=== PATIENT | male | born 1960 | race Caucasian/White ===

== ENCOUNTER 2024-10-20 07:53 | Outpatient (CLI) | payer BC, OTHER, SELFPAY ==
--- NOTE | 2024-10-20 08:15 | CRLHL7_ITS ---
For Patients: As a result of the Century Cures Act, medical imaging exams and procedure reports are released immediately into your electronic medical record. You may view this report before your referring provider. If you have questions, please contact your health care provider. ULTRASOUND-GUIDED RIGHT CERVICAL LYMPH NODE BIOPSY CLINICAL HISTORY: Enlarged right cervical lymph node COMPARISON STUDIES: CT soft tissue neck 10/12/2024 TECHNIQUE: Real-time ultrasound with image documentation was used for targeting the right cervical lymph node lesion. Core biopsy specimens were obtained using an automated gun with an 18-gauge biopsy needle. CONSENT and TIME OUT: The procedure, risks, and alternatives were explained to the patient and a consent was signed. [place] Protocol was followed including pre-procedure verification that relevant information/documentation was available, reviewed and properly matched to the patient; consent accurate and complete; and equipment and supplies available. Time Out was conducted just prior to starting procedure to verify the four required elements: patient identity, correct side/site marked (if applicable), procedure, relevant images/results properly labeled and displayed (if applicable). PROCEDURE: The patient was positioned supine on the ultrasound table. The right side of the neck was prepped with ChloraPrep. 8 cc of 1 percent lidocaine used for local anesthesia. Core samples were obtained. The specimens were placed in 10% formalin and sent to the pathology department. Pressure was held on the biopsy site until all bleeding subsided. The skin incision was closed with Steri-Strips. An ice pack was positioned over the biopsy site. Post-biopsy instructions were reviewed with the patient. LATERALITY: Right neck LESION: Enlarged hypoechoic lymph node measures 4.5 x 2.3 x 1.8 cm SUSPICION FOR MALIGNANCY: High NUMBER OF SAMPLES: 5 IMPRESSION: Ultrasound-guided right cervical lymph node biopsy. Dictated by Nato Jarvis MD @ 10/20/2024 9:22:33 AM (Electronically Signed)
== END 2024-10-20 07:54 | disposition home or self-care (01) ==
LOC: US 08:00
PROVIDERS: PCP Student in an Organized Health Care Education/Training Program; Visit Provider Student in an Organized Health Care Education/Training Program
DX: R59.1 Generalized enlarged lymph nodes (principal); K14.8 Other diseases of tongue
CPT/HCPCS: 38505; 76942; 88305; 88341; 88342; 88360; 88365; A4649